=== PATIENT | female | born 1990 | race Caucasian/White ===

== ENCOUNTER → 2023-06-26 10:18 | Outpatient (REF) | payer OTHER, SELFPAY | LOC: HWRAD 10:18 | PROVIDERS: ATTENDING PHYSICIAN Nurse Practitioner Adult Health; FAMILY PHYSICIAN Family Medicine | DX: N85.2 Hypertrophy of uterus (principal); N94.6 Dysmenorrhea, unspecified | CPT/HCPCS: 76830; 76856 ==

== ENCOUNTER → 2023-07-22 19:14 | Outpatient (REF) | payer OTHER, SELFPAY | LOC: MRI 19:14 | PROVIDERS: ATTENDING PHYSICIAN Nurse Practitioner Adult Health | DX: N83.209 Unspecified ovarian cyst, unspecified side (principal); D25.9 Leiomyoma of uterus, unspecified | CPT/HCPCS: 72197; A9575 ==